=== PATIENT | male | born 2005 | race Two or more races ===

== ENCOUNTER 2025-04-29 12:32 | Emergency (ER) | payer MEDICAID ==
[~2025-04-29] VITALS: Ht 180.3 cm; Wt 74.8 kg
[2025-04-29 12:43] VITALS: TEMP 97.9
[2025-04-29] MEDS ORDERED: CEPH-570 PO (13:22)
[2025-04-29] MEDS ORDERED: IBUP-1490 PO (13:22)
[2025-04-29] MEDS: TDAP [DIPH/PERTUSSIS/TET] 0.5 ML VIAL IM ONE (13:33)
[2025-04-29 13:41] VITALS: BP 130/75; O2SAT 16
== END 2025-04-29 13:26 | disposition home or self-care (01) ==
LOC: ER 12:42
DX: S61.215A Laceration without foreign body of left ring finger without damage to nail, initial encounter (principal); W45.8XXA Other foreign body or object entering through skin, initial encounter; Y93.89 Activity, other specified; Y92.89 Other specified places as the place of occurrence of the external cause; Y99.9 Unspecified external cause status
CPT/HCPCS: 99283; 73140; A6403 ×2